=== PATIENT | male | born 1975 | race African-American/Black ===

== ENCOUNTER 2022-05-29 16:39 | Emergency (ER) | payer BC ==
[2022-05-29] MEDS ORDERED: Ketorolac Tromethamine 30 MG/ML VIAL ONE (17:03)
[2022-05-29] MEDS ORDERED: Orphenadrine Citrate 60 MG/2 ML VIAL ONE (17:03)
[2022-05-29 17:24] LABS: Bilirubin Negative (Negative); Blood, Urine Negative (Negative); Clarity Clear (Clear); Glucose, Urine (Dipstick) Normal (Negative); Ketone, Urine Negative (Negative); Leukocyte Negative Leu/uL (Negative); Nitrite Negative (Negative); Protein, Urine (Dipstick) 50 mg/dL (Neg-Trace); Specific Gravity, Urine 1.013 (1.002-1.036); Urobilinogen Normal mg/dL (Less than 2)
[2022-05-29 17:34] LABS: Bacteria/HPF None Seen HPF (None Seen); RBC/HPF None Seen HPF (0-3); Sperm/HPF 1+ HPF (None Seen); Squamous Epithelial 0-3 HPF (0-3); WBC/HPF 0-3 HPF (0-3)
== END 2022-05-29 17:52 | disposition home or self-care (01) ==
LOC: ERS 16:39
DX: M54.50 Low back pain, unspecified (principal); F17.210 Nicotine dependence, cigarettes, uncomplicated
CPT/HCPCS: 81003; 81015; 96372; 99283; J1885; J2360